=== PATIENT | female | born 1985 | race Caucasian/White ===

== ENCOUNTER 2016-07-10 04:51 | Observation (INO) | payer OTHER ==
[2016-07-10] VITALS (17 sets, daily range): BP systolic 81–150; BP diastolic 42–66; PULSE 84–122; RESP 15–22; TEMP 97–101.1; O2SAT 96–100
[~2016-07-10] VITALS: Ht 165.1 cm; Wt 56.1 kg
[~2016-07-10 04:51] MED LIST: IBUP600 PO; LORTA5 PO; Z.0.BCPILL PO
[2016-07-10] MEDS ORDERED: SODIUM CHLORIDE 0.9% FLUSH 10 ML FLUSH IV FLUSH PRN ×2 (05:15→07:15)
[2016-07-10] MEDS ORDERED: SODIUM CHLOR 0.9% 1000 ML INJ 1,000 ML IV SCH (05:15)
[2016-07-10] MEDS ORDERED: HYDROmorphone HCL PF 1 MG/ML VIAL IVS ONE (05:15)
[2016-07-10] MEDS ORDERED: PANTOPRAZOLE SODIUM 40 MG VIAL IVP ONE (05:15)
[2016-07-10] MEDS ORDERED: ONDANSETRON HCL 4 MG/2 ML VIAL IVP ONE (05:15)
[2016-07-10] MEDS ORDERED: SODIUM CHLOR 0.9% 1000 ML INJ 1,000 ML IV ONE (05:30)
[2016-07-10] MEDS ORDERED: DIATRIZOATE MEGLUM/DIATRIZOATE SOD 9 ML CUP ONE (05:35)
--- NOTE | 2016-07-10 05:41 | PD ---
HPI Chief Complaint: Abdominal Pain Time Seen by Provider: 05:13 Travel History International Travel<30 days: No Contact w/Intl Traveler<30days: No Traveled to known affect area: No History of Present Illness HPI Healthy 31-year-old female here with complaint of abdominal pain. Starting yesterday evening patient began to have periumbilical and epigastric abdominal pain, cramping in nature. Initially mild but progressively more moderate to severe. Associated nausea, vomiting, diarrhea. Intractable nausea and vomiting. No hematemesis or hematochezia. No fevers or chills. Patient quite uncomfortable and writhing around in bed on my exam. States that her son in multiple family members were sick with similar symptoms but not to this severity. Patient notes history of appendectomy, cholecystectomy and partial bowel resection as a child for intussusception. She's never had issues with bowel obstruction. [facility] Past Medical History Endocrine: Yes Thyroid Disease: Yes ?: Not Past Surgical History Appendectomy: Yes Section: Yes Cholecystectomy: Yes Other Surgery: Yes (COLON RESECTION,APPY) Social History Alcohol Use: Yes (OCC) Tobacco Use: No Substance Use: No Allergies-Medications (Allergen,Severity, Reaction): Coded Allergies: No Known Allergies (Unverified , 07/10/16) Reported Meds & Prescriptions Reported Meds & Active Scripts Active No Active Prescriptions or Reported Medications Review of Systems Except as stated in HPI: all other systems reviewed are Neg Physical Exam Narrative GENERAL: Uncomfortable adult female writhing around in bed in pain SKIN: Focused skin assessment warm/dry. HEAD: Normocephalic. EYES: No scleral icterus. No injection or drainage. ENT: Mucous membranes pink and moist. NECK: Supple CARDIOVASCULAR: Tachycardic with heart rate in the 120s, regular rhythm. No murmur appreciated. RESPIRATORY: No accessory muscle use. Clear to auscultation. Breath sounds equal bilaterally. GASTROINTESTINAL: Abdomen soft, epigastric abdominal tenderness to palpation without rebound or guarding. Old healed surgical scars MUSCULOSKELETAL: Moves all extremities normally NEUROLOGICAL: Awake and alert. Normal speech. PSYCHIATRIC: Appropriate mood and affect; insight and judgment normal. Data Data Last Documented VS Vital Signs Date Time Temp Pulse Resp B/P Pulse Ox O2 Delivery O2 Flow Rate FiO2 07/10/16 06:15 101 18 87/50 99 07/10/16 05:26 Room Air 07/10/16 04:58 98.6 Orders Complete Blood Count With Diff (07/10/16 05:15) Comprehensive Metabolic Panel (07/10/16 05:15) Lipase (07/10/16 05:15) Ct Abd/Pel W Iv Contrast(Rout) (07/10/16 05:15) Iv Access Insert/Monitor (07/10/16 05:15) Ecg Monitoring (07/10/16 05:15) Oximetry (07/10/16 05:15) Ondansetron Inj (Zofran Inj) (07/10/16 05:15) Pantoprazole Inj (Protonix Inj) (07/10/16 05:15) Sodium Chlor 0.9% 1000 Ml Inj (Ns 1000 M (07/10/16 05:15) Sodium Chloride 0.9% Flush (Ns Flush) (07/10/16 05:15) Hydromorphone Pf Inj (Dilaudid Pf Inj) (07/10/16 05:15) Lactic Acid Sepsis Protocol (07/10/16 05:15) Oral Contrast - Adult (07/10/16 05:22) Sodium Chlor 0.9% 1000 Ml Inj (Ns 1000 M (07/10/16 05:30) Diatrizoate Liq ( Gastroview Liq) (07/10/16 05:35) Ondansetron Inj (Zofran Inj) (07/10/16 05:45) Lactated Ringer's 1000 Ml Inj (Lr 1000 M (07/10/16 06:15) Blood Culture (07/10/16 06:31) Piperacil-Tazo 4.5 Gm Premix (Zosyn 4.5 (07/10/16 06:31) Lactated Ringer's 1000 Ml Inj (Lr 1000 M (07/10/16 06:45) Iohexol 350 Inj (Omnipaque 350 Inj) (07/10/16 06:40) Admit Order (Ed Use Only) (07/10/16 07:03) Labs Laboratory Tests Test 07/10/16 05:45 White Blood Count 14.5 TH/MM3 Red Blood Count 4.62 MIL/MM3 Hemoglobin 14.2 GM/DL Hematocrit 41.9 % Mean Corpuscular Volume 90.6 FL Mean Corpuscular Hemoglobin 30.7 PG Mean Corpuscular Hemoglobin 33.9 % Concent Red Cell Distribution Width 12.5 % Platelet Count 189 TH/MM3 Mean Platelet Volume 10.5 FL Neutrophils (%) (Auto) 95.3 % Lymphocytes (%) (Auto) 0.9 % Monocytes (%) (Auto) 3.6 % Eosinophils (%) (Auto) 0.1 % Basophils (%) (Auto) 0.1 % Neutrophils # (Auto) 13.8 TH/MM3 Lymphocytes # (Auto) 0.1 TH/MM3 Monocytes # (Auto) 0.5 TH/MM3 Eosinophils # (Auto) 0.0 TH/MM3 Basophils # (Auto) 0.0 TH/MM3 CBC Comment DIFF FINAL Differential Comment Sodium Level 141 MEQ/L Potassium Level 3.4 MEQ/L Chloride Level 104 MEQ/L Carbon Dioxide Level 26.2 MEQ/L Anion Gap 11 MEQ/L Blood Urea Nitrogen 22 MG/DL Creatinine 0.95 MG/DL Estimat Glomerular Filtration 70 ML/MIN Rate Random Glucose 124 MG/DL Lactic Acid Level 2.4 mmol/L Calcium Level 8.7 MG/DL Total Bilirubin 1.8 MG/DL Aspartate Amino Transf 16 U/L (AST/SGOT) Alanine Aminotransferase 21 U/L (ALT/SGPT) Alkaline Phosphatase 68 U/L Total Protein 7.4 GM/DL Albumin 3.9 GM/DL Lipase 123 U/L MDM Medical Decision Making Medical Screen Exam Complete: Yes Emergency Medical Condition: Yes Medical Record Reviewed: Yes Differential Diagnosis 31-year-old female with previous appendectomy, cholecystectomy and partial bowel resection as a child for intussusception here with complaint of 12-16 hours of crampy periumbilical and epigastric abdominal pain with nausea vomiting diarrhea. Patient notably uncomfortable and exam, tachycardic but abdominal examination is benign. Differential includes gastroenteritis, gastritis, peptic ulcer disease, pancreatitis, bowel obstruction, perforated viscus Narrative Course Patient placed on monitor, IV established and blood obtained. Patient tachycardic but blood pressure in triage normal. Upon recheck in the room patient is hypotensive in the 80s. States that her blood pressure typically runs in the 90s to 100 systolic. Patient given 2 L normal saline bolus, Zofran , Dilaudid, IV PPI. CBC, CMP, lipase, lactate, blood cultures obtained and notable for WBC 14.5, lactate 2.4. With the above fluids blood pressures improved transiently but then dipped back into the 80s. She was given 3rd/4th liter bolus, now LR. Patient empirically treated with Zosyn. CT abdomen and pelvis showed no acute abnormalities. With the above treatment patient vital signs improved, heart rate now in the 100s and blood pressure in the 90s systolic. Patient is still unfortunately miserable with pain and nausea and warrants admission for further symptom management for gastroenteritis. Critical Care Narrative Aggregate critical care time was 35 minutes. Time to perform other separately billable procedures was not included in the critical care time. My time did not include minutes spent treating any other patients simultaneously or on activities that did not directly contribute to the patient's treatment. The services I provided to this patient were to treat and/or prevent clinically significant deterioration that could result in: Cardiopulmonary decompensation, elect to light abnormality, , disability I provided critical care services requiring my management, as noted below: Chart data review, documentation time, medication orders and management, vital sign assessments/reviewing monitor data, ordering and reviewing lab tests, ordering and interpreting/reviewing x-rays and diagnostic studies, care of the patient and discussion of the patient with the admitting physicians. Sepsis Criteria SIRS Criteria (2 or more): Heart rate over 90, WBC > 11449, < 4000 or > 10% bands Sepsis Criteria (SIRS+source): Infect source susp/known Severe Sepsis (+one): Lactate >2 Criteria Outcome: Meets SIRS criteria, Meets sepsis criteria, Meets severe sepsis criteria Diagnosis Primary Impression: Severe sepsis Additional Impressions: Gastroenteritis Lactic acidosis Leukocytosis Qualified Code: D72.829 - Leukocytosis, unspecified type Admitting Information Admitting Physician Requests: Admit Scripts No Active Prescriptions or Reported Meds Shawanda Godwin MD Jul 10, 2016 05:41
[2016-07-10] MEDS ORDERED: ONDANSETRON HCL 4 MG/2 ML VIAL IV PUSH ONE (05:45)
[2016-07-10 05:52] LABS: AUTOMATED NEUTROPHIL # 13.8 TH/MM3 (1.8-7.7); BASOPHIL % 0.1 % (0.0-2.0); EOSINOPHIL % 0.1 % (0.0-4.0); HEMATOCRIT 41.9 % (35.0-46.0); HEMO FLAGS DIFF FINAL; LYMPH % 0.9 % (9.0-44.0); LYMPHOCYTE # 0.1 TH/MM3 (1.0-4.8); MEAN CELL VOLUME 90.6 FL (80.0-100.0); MEAN CORPUSCULAR HEMOGLOBIN 30.7 PG (27.0-34.0); MEAN CORPUSCULAR HGB CONC 33.9 % (32.0-36.0); MONO % 3.6 % (0.0-8.0); NEUT % 95.3 % (16.0-70.0); PLATELET COUNT 189 TH/MM3 (150-450); RED BLOOD COUNT 4.62 MIL/MM3 (4.00-5.30); RED CELL DISTRIBUTION WIDTH 12.5 % (11.6-17.2); WHITE BLOOD COUNT 14.5 TH/MM3 (4.0-11.0)
[2016-07-10] MEDS ORDERED: LACTATED RINGER'S 1000 ML INJ 1,000 ML IV ONE ×2 (06:15→06:45)
[2016-07-10 06:22] LABS: ANION GAP 11 MEQ/L (5-15); AST (GOT) 16 U/L (15-37); BICARBONATE 26.2 MEQ/L (21.0-32.0); BLOOD UREA NITROGEN 22 MG/DL (7-18); CHLORIDE 104 MEQ/L (98-107); GLOMERULAR FILTRATION RATE 70 ML/MIN (>89); POTASSIUM 3.4 MEQ/L (3.5-5.1); SODIUM (NA) 141 MEQ/L (136-145)
[2016-07-10 06:26] LABS: ALKALINE PHOSPHATASE 68 U/L (45-117); ALT (GPT) 21 U/L (10-53); TOTAL BILIRUBIN ADULT 1.8 MG/DL (0.2-1.0)
[2016-07-10] MEDS ORDERED: PIPERACIL-TAZO 4.5 GM PREMIX 100 ML IV STA (06:31)
[2016-07-10] MEDS ORDERED: IOHEXOL 350 MG/ML 10 ML VIAL (for RAD DIAG) IV ONE (06:40)
--- NOTE | 2016-07-10 06:49 | RADRPT ---
EXAM DATE/TIME: 07/10/2016 06:37 [facility] COMPARISON: CT ABDOMEN & PELVIS W CONTRAST, April 15, 2013, 22:32. INDICATIONS : Medial abdominal pain with nausea, vomiting and diarrhea. IV CONTRAST: 85 cc Omnipaque 350 (iohexol) IV ORAL CONTRAST: Prescribed oral contrast ingested. RADIATION DOSE: 4.66 CTDIvol (mGy) MEDICAL HISTORY : None SURGICAL HISTORY : Appendectomy. Cholecystectomy. section. ENCOUNTER: Initial ACUITY: 1 day PAIN SCALE: 8/10 LOCATION: medial TECHNIQUE: Volumetric scanning of the abdomen and pelvis was performed. Using automated exposure control and ad justment of the mA and/or kV according to patient size, radiation dose was kept as low as reasonably achievable to obtain optimal diagnostic quality images. FINDINGS: LOWER LUNGS: The visualized lower lungs are clear. LIVER: Homogeneous density without lesion. There is no dilation of the biliary tree. Gallbladder is surgica lly absent. SPLEEN: Normal size without lesion. PANCREAS: Within normal limits. KIDNEYS: Normal in size and shape. There is no mass, stone or hydronephrosis. ADRENAL GLANDS: Within normal limits. VASCULAR: There is no aortic aneurysm. BOWEL/MESENTERY: The stomach, small bowel, and colon demonstrate no acute abnormality. There is no free intraperitone al air or fluid. ABDOMINAL WALL: Within normal limits. RETROPERITONEUM: There is no lymphadenopathy. BLADDER: No wall thickening or mass. REPRODUCTIVE: Within normal limits. INGUINAL: There is no lymphadenopathy or hernia. MUSCULOSKELETAL: Within normal limits for patient age. CONCLUSION: 1. No acute abnormality. 2. Interval cholecystectomy. Rahat De Leon Jr., MD on July 10, 2016 at 6:44 Board Certified Radiologist. This report was verified electronically.
[2016-07-10] MEDS ORDERED: ACETAMINOPHEN/HYDROcodone 325 MG/5 MG TAB PO PRN (07:15)
[2016-07-10] MEDS ORDERED: ACETAMINOPHEN 325 MG TAB PO PRN (07:15)
[2016-07-10] MEDS ORDERED: BISACODYL 10 MG SUPP RECTAL PRN (07:15)
[2016-07-10 07:47] LABS: LACTIC ACID GHOST NOT REPORTABLE
[2016-07-10] MEDS: ONDANSETRON HCL 4 MG/2 ML VIAL IVP PRN ×2 (08:02→21:11)
[2016-07-10] MEDS: SODIUM CHLOR 0.9% 1000 ML INJ 1,000 ML IV SCH ×3 (08:03→21:12)
[2016-07-10] MEDS: SODIUM CHLORIDE 0.9% FLUSH 10 ML FLUSH IV FLUSH SCH ×2 (09:00→21:00)
[2016-07-10] MEDS ORDERED: POTASSIUM CHLOR 20 MEQ PREMIX 100 ML IV ONE (09:00)
[2016-07-10] MEDS: MORPHINE SULFATE 4 MG/ML INJ IV PRN ×2 (09:49→21:12)
[2016-07-10] MEDS ORDERED: METOCLOPRAMIDE HCL 10 MG/2 ML VIAL IV PUSH PRN (11:30)
[2016-07-10] MEDS ORDERED: PIPERACIL-TAZO 3.375 GM PREMIX 50 ML IV SCH (12:00)
--- NOTE | 2016-07-10 13:21 | HHI.HP ---
[facility] Yandel Macias MD Admission Diagnosis sepsis, gastroenteritis Diagnoses: Chief Complaint: abdominal pain assoicated N/V/D Travel History International Travel<30 Days: No Contact w/Intl Traveler <30 Da: No Traveled to Known Affected Are: No History of Present Illness This is a 31-year-old female with past medical history of intussusception s/p bowel resection as a child. Patient presented to the ER with complaints of abdominal pain. The abdominal pain started yesterday evening patient began to have epigastric abdominal pain, intermitted and cramping in nature. Initially mild but progressively more severe. Currently patient reports epigastric pain is only a, "mild tenderness with palpation, not really pain." Associated nausea , vomiting, diarrhea. No hematemesis or hematochezia. No fevers or chills. She has been exposed to Recent sick contacts; patient recently vacationing in [place] patient's friend, friends son and her son all got sick with similar symptoms but not to this severity. Patient denies chest pain, shortness of breath, fever or chills. Review of Systems Except as stated in HPI: all other systems reviewed are Neg Past Family Social History Past Medical History intussusception s/p bowel resection as a child Past Surgical History bowel resection secondary to intussusception appendectomy cholecystectomy partial bowel resection Reported Medications No Active Prescriptions or Reported Medications Allergies: Coded Allergies: No Known Allergies (Unverified , 07/10/16) Active Ordered Medications Current Medications Medications (Trade) Dose Ordered Sig/Dony Route Start Time Stop Time Status Last Admin (Zosyn 3.375 Gm Premix) 50 ml @ 100 mls/hr Q6H IV 07/10/16 12:00 Pantoprazole Sodium 40 mg 40 mg Q12H IV PUSH 07/10/16 21:00 (NS 1000 ml Inj) 1,000 ml @ 150 mls/hr Q6H40M IV 07/10/16 08:00 07/10/16 08:03 (NS Flush) 2 ml UNSCH PRN IV FLUSH 07/10/16 07:15 (NS Flush) 2 ml BID IV FLUSH 07/10/16 09:00 (Zofran Inj) 4 mg Q6H PRN IVP 07/10/16 07:15 07/10/16 08:02 (Dulcolax Supp) 10 mg DAILY PRN RECTAL 07/10/16 07:15 (Tylenol) 650 mg Q6H PRN PO 07/10/16 07:15 ([place] 5-325 Mg) 1 tab Q4H PRN PO 07/10/16 07:15 (Morphine Inj) 2 mg Q3H PRN IV 07/10/16 07:15 07/10/16 09:49 (Reglan Inj) 5 mg Q8H PRN IV PUSH 07/10/16 11:30 07/10/16 11:50 Family History Mother with history of tachycardia s/p cardiac ablation Social History ETOH Denies tobacco Denies illicit drug use Physical Exam Vital Signs Vital Signs Date Time Temp Pulse Resp B/P Pulse Ox O2 Delivery O2 Flow Rate FiO2 07/10/16 11:00 98.0 89 17 94/58 100 07/10/16 10:14 97.0 84 17 103/63 98 07/10/16 08:06 98.9 97 22 97/64 97 Room Air 07/10/16 07:12 103 18 103/66 97 07/10/16 06:30 102 21 93/55 99 07/10/16 06:15 101 18 87/50 99 07/10/16 05:58 109 18 100/61 99 07/10/16 05:50 104 16 90/59 99 07/10/16 05:42 100 16 86/55 97 07/10/16 05:34 122 15 81/64 100 07/10/16 05:26 15 98 Room Air 07/10/16 05:22 115 15 81/42 98 07/10/16 05:19 18 07/10/16 04:58 98.6 121 20 150/57 96 Physical Exam GENERAL: This is a well-nourished, well-developed patient, in no apparent distress. SKIN: No rashes, ecchymoses or lesions. Cool and dry. HEAD: Atraumatic. Normocephalic. No temporal or scalp tenderness. EYES: Extraocular motions intact. No scleral icterus. No injection or drainage. ENT: Nose without bleeding, purulent drainage or septal hematoma. Throat without erythema, tonsillar hypertrophy or exudate. Uvula midline. Airway patent. NECK: Trachea midline. No JVD or lymphadenopathy. Supple, nontender, no meningeal signs. CARDIOVASCULAR: Regular rate and rhythm without murmurs, gallops, or rubs. RESPIRATORY: Clear to auscultation. Breath sounds equal bilaterally. No wheezes , rales, or rhonchi. GASTROINTESTINAL: Abdomen soft, tender to palpation in the epigastric area but no rebound or guarding. No palpable masses. No guarding. MUSCULOSKELETAL: Extremities without clubbing, cyanosis, or edema. No joint tenderness, effusion, or edema noted. No calf tenderness. Negative Homans sign bilaterally. NEUROLOGICAL: Awake and alert. No focal deficits. Motor and sensory grossly within normal limits. Five out of 5 muscle strength in all muscle groups. Normal speech. Laboratory Laboratory Tests Test 07/10/16 05:45 White Blood Count 14.5 Red Blood Count 4.62 Hemoglobin 14.2 Hematocrit 41.9 Mean Corpuscular Volume 90.6 Mean Corpuscular Hemoglobin 30.7 Mean Corpuscular Hemoglobin 33.9 Concent Red Cell Distribution Width 12.5 Platelet Count 189 Mean Platelet Volume 10.5 Neutrophils (%) (Auto) 95.3 Lymphocytes (%) (Auto) 0.9 Monocytes (%) (Auto) 3.6 Eosinophils (%) (Auto) 0.1 Basophils (%) (Auto) 0.1 Neutrophils # (Auto) 13.8 Lymphocytes # (Auto) 0.1 Monocytes # (Auto) 0.5 Eosinophils # (Auto) 0.0 Basophils # (Auto) 0.0 CBC Comment DIFF FINAL Differential Comment Sodium Level 141 Potassium Level 3.4 Chloride Level 104 Carbon Dioxide Level 26.2 Anion Gap 11 Blood Urea Nitrogen 22 Creatinine 0.95 Estimat Glomerular Filtration 70 Rate Random Glucose 124 Lactic Acid Level 2.4 Calcium Level 8.7 Magnesium Level 1.9 Total Bilirubin 1.8 Aspartate Amino Transf 16 (AST/SGOT) Alanine Aminotransferase 21 (ALT/SGPT) Alkaline Phosphatase 68 Total Protein 7.4 Albumin 3.9 Lipase 123 Date/Time Procedure Status Source Growth 07/10/16 06:45 Aerobic Blood Culture Received Blood Peripheral Pending 07/10/16 06:45 Anaerobic Blood Culture Received Blood Peripheral Pending Result Diagram: 07/10/16 0545 07/10/16 0545 Imaging Last Impressions Abdomen/Pelvis CT 07/10/16 0515 Signed Impressions: Service Date/Time: Sunday, July 10, 2016 06:37 - CONCLUSION: 1. No acute abnormality. 2. Interval cholecystectomy. Rahat De Leon Jr., MD Assessment and Plan Problem List: (1) Gastroenteritis ICD Code: K52.9 Status: Acute (2) Lactic acidosis ICD Code: E87.2 Status: Acute (3) Dehydration ICD Code: E86.0 Status: Acute Assessment and Plan This is a 31-year-old female with past medical history of thyroid disease, intussusception s/p bowel resection as a child. Patient presented to the ER with complaints of abdominal pain. The abdominal pain started yesterday evening patient began to have epigastric abdominal pain, cramping in nature. Initially mild but progressively more moderate to severe. Associated nausea, vomiting, diarrhea. Patient recently vacationing in [place] patient's friend, friends son and her son all got sick with similar symptoms. Gastroenteritis with dehydration and lactic acidosis symptoms not consistent with severe sepsis- will DC Zosyn and monitor closely repeat LA pending received fluid bolus in ER total of 4 L continue IV fluid NS at 150 ml/H BC x 2 obtained and pending supportive care, N/V continue Zofran add Reglan Hypokalemia- K 3.4 Mag add on 20 meq KCL IV recheck in AM dehydration: BUN 22 creatinine 0.95 continue IV fluids NS 150ml/h GI prophylaxis protonix DVT TEDS and SCDs CODE status: Full code discussed with patient and nursing Written by Tania Weiss, acting as scribe for Dr. Melissa on 07/10/16 at 1433. All or portions of this note were transcribed by caesar Weiss. I, Dr. Susana Melissa personally performed the history, physical exam, and medical decision making; and confirmed the accuracy of the information in the transcribed note. Authenticated by Dr. Susana Melissa on 07/10/16 at 1433. Physician Certification 2 Midnight Certification Type: Admission for Inpatient Services Order for Inpatient Services The services are ordered in accordance with Medicare regulations or non- Medicare payer requirements, as applicable. In the case of services not specified as inpatient-only, they are appropriately provided as inpatient services in accordance with the 2-midnight benchmark. Estimated LOS (days): 3 days is the estimated time the patient will need to remain in the hospital, assuming treatment plan goals are met and no additional complications. Post-Hospital Plan: Home Tania Weiss Jul 10, 2016 13:21 Susana Melissa MD Jul 10, 2016 19:04
[2016-07-10] MEDS: PANTOPRAZOLE SODIUM 40 MG VIAL IV PUSH SCH (21:11)
[2016-07-11] VITALS: BP 98/56; PULSE 89; RESP 20; TEMP 99.8; O2SAT 98
[2016-07-11 04:00] VITALS: BP 99/58; PULSE 85; RESP 20; TEMP 99.9; O2SAT 96
[2016-07-11] MEDS: SODIUM CHLOR 0.9% 1000 ML INJ 1,000 ML IV SCH (04:00)
[2016-07-11 07:35] VITALS: BP 101/60; PULSE 76; RESP 17; TEMP 99.1; O2SAT 96
[2016-07-11 08:18] LABS: AUTOMATED NEUTROPHIL # 2.6 TH/MM3 (1.8-7.7); BASOPHIL % 0.4 % (0.0-2.0); EOSINOPHIL % 1.4 % (0.0-4.0); HEMATOCRIT 33.9 % (35.0-46.0); HEMO FLAGS DIFF FINAL; LYMPH % 14.3 % (9.0-44.0); LYMPHOCYTE # 0.5 TH/MM3 (1.0-4.8); MEAN CELL VOLUME 92.2 FL (80.0-100.0); MEAN CORPUSCULAR HEMOGLOBIN 30.3 PG (27.0-34.0); MEAN CORPUSCULAR HGB CONC 32.8 % (32.0-36.0); MONO % 10.4 % (0.0-8.0); NEUT % 73.5 % (16.0-70.0); PLATELET COUNT 112 TH/MM3 (150-450); RED BLOOD COUNT 3.68 MIL/MM3 (4.00-5.30); RED CELL DISTRIBUTION WIDTH 12.7 % (11.6-17.2); WHITE BLOOD COUNT 3.5 TH/MM3 (4.0-11.0)
[2016-07-11] MEDS: PANTOPRAZOLE SODIUM 40 MG VIAL IV PUSH SCH (08:50)
[2016-07-11 09:05] LABS: ALKALINE PHOSPHATASE 61 U/L (45-117); ALT (GPT) 62 U/L (10-53); ANION GAP 6 MEQ/L (5-15); AST (GOT) 55 U/L (15-37); BICARBONATE 27.8 MEQ/L (21.0-32.0); BLOOD UREA NITROGEN 7 MG/DL (7-18); CHLORIDE 108 MEQ/L (98-107); GLOMERULAR FILTRATION RATE 101 ML/MIN (>89); POTASSIUM 3.2 MEQ/L (3.5-5.1); SODIUM (NA) 142 MEQ/L (136-145); TOTAL BILIRUBIN ADULT 1.8 MG/DL (0.2-1.0)
[2016-07-11 11:00] VITALS: BP 101/66; PULSE 77; RESP 17; TEMP 98.8; O2SAT 99
[2016-07-11] MEDS: ONDANSETRON HCL 4 MG/2 ML VIAL IVP PRN (12:42)
[2016-07-11] MEDS ORDERED: ZOFR4TAB PO (13:06)
--- NOTE | 2016-07-11 13:06 | HHI.DCPOC ---
Discharge Care Plan Diagnosis: (1) Dehydration (2) Gastroenteritis Goals to Promote Your Health * To prevent worsening of your condition and complications * To maintain your health at the optimal level Directions to Meet Your Goals Take your medications as prescribed Follow your dietary instruction Follow activity as directed Keep your appointments as scheduled Take your immunizations and boosters as scheduled If your symptoms worsen call your PCP, if no PCP go to Urgent Care Center or Emergency Room Smoking is Dangerous to Your Health. Avoid second hand smoke Call the 24-hour hour crisis hotline for domestic abuse at Susana Melissa MD Jul 11, 2016 13:06
--- NOTE | 2016-07-11 14:21 | HHI.PR ---
Subjective Remarks Pt feels much better today. She had one episode of diarrhea. She denies any nausea or vomiting and is tolerating PO. epigastric pain has resolved. She would like to go home today Objective Vitals Vital Signs Date Time Temp Pulse Resp B/P Pulse Ox O2 Delivery O2 Flow Rate FiO2 07/11/16 11:00 98.8 77 17 101/66 99 07/11/16 07:35 99.1 76 17 101/60 96 07/11/16 04:00 99.9 85 20 99/58 96 07/11/16 00:00 99.8 89 20 98/56 98 07/10/16 20:00 97.0 93 20 96/52 98 07/10/16 19:00 90 07/10/16 18:23 98.2 07/10/16 15:00 101.1 111 17 91/54 96 I/O 07/10/16 07/10/16 07/10/16 07/11/16 07/11/16 07/11/16 07:00 15:00 23:00 07:00 15:00 23:00 Intake Total 1417 ml 120 ml Output Total 75 ml Balance -75 ml 1417 ml 120 ml Intake Oral 480 ml 120 ml IV Total 937 ml Output Emesis 75 ml # Voids 1 3 1 # Bowel Movements 0 0 Result Diagram: 07/11/16 0735 07/11/16 0735 Imaging Last Impressions Abdomen/Pelvis CT 07/10/16 0515 Signed Impressions: Service Date/Time: Sunday, July 10, 2016 06:37 - CONCLUSION: 1. No acute abnormality. 2. Interval cholecystectomy. Rahat De Leon Jr., MD Objective Remarks GENERAL: This is a well-nourished, well-developed patient, in no apparent distress. CARDIOVASCULAR: Regular rate and rhythm without murmurs RESPIRATORY: Clear to auscultation. Breath sounds equal bilaterally. No wheezes GASTROINTESTINAL: Abdomen soft, non tender in the epigastric area and no rebound or guarding. MUSCULOSKELETAL: Extremities without edema. moves all extremities well NEUROLOGICAL: Awake and alert. No focal deficits. Normal speech. A/P Problem List: (1) Gastroenteritis ICD Code: K52.9 Status: Acute (2) Lactic acidosis ICD Code: E87.2 Status: Acute (3) Dehydration ICD Code: E86.0 Status: Acute Assessment and Plan Gastroenteritis with dehydration and lactic acidosis symptoms are not consistent with severe sepsis, pt tells me that her son, friend and friend's son had similar symptoms after eating tacos. therefore IV abx were stopped. Pt has been afebrile all day. Nausea and vomiting have resolved. abdominal pain resolved. she did have one episode of diarrhea today. Pt is tolerating a diet. She would like to go home today. is with her and is comfortable taking her home as well. Repeat lactic acid is back to normal. I have encouraged her to stay well hydrated. She voices her understanding. She tells me that she will be seeing Dr. Macias, her PCP on . I have encouraged her to keep her appt and if she feels worst, she can return to the hospital. At this time, I did inform her that final blood cultures are not yet available however so far they are neg x 1 day. She will be getting records to bring to her appt on . script for zofran given. Encourage her to drink pedialyte and gatorade as tolerated and advance diet as tolerated. Discharge Planning ok to d/c home today and because I feel that she has a case of gastroenteritis I 'm comfortable doing so. In addition, pt has good outpatient f/u keep appt on 07/13/16 w PCP I have noted mild elevation of her LFTs but she is currently asymptomatic. These can be repeated as an outpatient in the next few days. Susana Melissa MD Jul 11, 2016 14:21
== END 2016-07-11 14:00 | disposition home or self-care (01) ==
LOC: NEPE 04:51 → NEDA 07:05 → INTOOBSV 07:05 → N05B 10:05
PROVIDERS: ADMIT Hospitalist; ATTEND Hospitalist
DX: K52.9 Noninfective gastroenteritis and colitis, unspecified (principal); E86.0 Dehydration; E87.2 Acidosis; D72.829 Elevated white blood cell count, unspecified; E87.6 Hypokalemia; E07.9 Disorder of thyroid, unspecified; Z90.49 Acquired absence of other specified parts of digestive tract
CPT/HCPCS: 74177; 76937; 80053; 83605; 83690; 83735; 85025; 87040; 96365; 96368; 96375; 99291; C9113; G0378; J1170; J2270; J2405; J2543; J2765; J3480; J7030; J7120; Q9963; Q9967

== ENCOUNTER → 2017-05-04 | Outpatient (CLI) | payer OTHER ==
[~2017-05-04] MED LIST changes: -IBUP600 PO; -LORTA5 PO; -Z.0.BCPILL PO; +ZOFR4TAB PO
[2017-05-04 15:48] LABS: AUTOMATED NEUTROPHIL # 4.8 TH/MM3 (1.8-7.7); BASOPHIL % 0.4 % (0.0-2.0); EOSINOPHIL # 0.1 TH/MM3 (0-0.4); EOSINOPHIL % 1.9 % (0.0-4.0); HEMATOCRIT 34.1 % (35.0-46.0); HEMOGLOBIN 11.8 GM/DL (11.6-15.3); LYMPH % 22.1 % (9.0-44.0); LYMPHOCYTE # 1.5 TH/MM3 (1.0-4.8); MEAN CELL VOLUME 93.4 FL (80.0-100.0); MEAN CORPUSCULAR HEMOGLOBIN 32.2 PG (27.0-34.0); MEAN CORPUSCULAR HGB CONC 34.5 % (32.0-36.0); MEAN PLATELET VOLUME 9.1 FL (7.0-11.0); MONO % 6.6 % (0.0-8.0); MONOCYTE # 0.5 TH/MM3 (0-0.9); PLATELET COUNT 193 TH/MM3 (150-450); RED BLOOD COUNT 3.65 MIL/MM3 (4.00-5.30); RED CELL DISTRIBUTION WIDTH 13.8 % (11.6-17.2); WHITE BLOOD COUNT 6.9 TH/MM3 (4.0-11.0)
[2017-05-07 13:53] LABS: HEPATITIS B SURFACE ANTIGEN NEGATIVE (NEGATIVE)
[2017-05-09 23:52] LABS: HIV 1/2 AG AB NON-REACTIVE (NONREACTIVE)
== END ==
LOC: CLAB 15:12
PROVIDERS: ATTEND Obstetrics & Gynecology
DX: Z34.82 Encounter for supervision of other normal pregnancy, second trimester (principal); R82.99 Other abnormal findings in urine
CPT/HCPCS: 36415; 80307; 85025; 86592; 86762; 86850; 86900; 86901; 87086; 87340; 87389; 87535

== ENCOUNTER → 2017-06-19 | Outpatient (CLI) | payer OTHER ==
[2017-06-19 08:51] LABS: AUTOMATED NEUTROPHIL # 3.8 TH/MM3 (1.8-7.7); BASOPHIL % 0.5 % (0.0-2.0); EOSINOPHIL # 0.2 TH/MM3 (0-0.4); EOSINOPHIL % 3.2 % (0.0-4.0); HEMATOCRIT 33.9 % (35.0-46.0); HEMOGLOBIN 11.9 GM/DL (11.6-15.3); LYMPH % 19.8 % (9.0-44.0); LYMPHOCYTE # 1.1 TH/MM3 (1.0-4.8); MEAN CELL VOLUME 97.6 FL (80.0-100.0); MEAN CORPUSCULAR HEMOGLOBIN 34.2 PG (27.0-34.0); MEAN CORPUSCULAR HGB CONC 35.1 % (32.0-36.0); MEAN PLATELET VOLUME 9.2 FL (7.0-11.0); MONO % 6.9 % (0.0-8.0); MONOCYTE # 0.4 TH/MM3 (0-0.9); NEUT % 69.6 % (16.0-70.0); PLATELET COUNT 166 TH/MM3 (150-450); RED BLOOD COUNT 3.47 MIL/MM3 (4.00-5.30); RED CELL DISTRIBUTION WIDTH 14.1 % (11.6-17.2); WHITE BLOOD COUNT 5.5 TH/MM3 (4.0-11.0)
== END ==
LOC: CLAB 08:13
PROVIDERS: ATTEND Obstetrics & Gynecology
DX: R53.83 Other fatigue (principal)
CPT/HCPCS: 36415; 84443; 85025

== ENCOUNTER → 2017-08-02 | Outpatient (CLI) | payer OTHER | LOC: CLAB 08:25 | PROVIDERS: ATTEND Obstetrics & Gynecology | DX: Z34.83 Encounter for supervision of other normal pregnancy, third trimester (principal) | CPT/HCPCS: 36415; 82951; 86703 ==